=== PATIENT | female | born 1930 | race Two or more races ===

== ENCOUNTER → 2017-04-08 | Outpatient (REF) | payer MEDICARE, BC ==
[2017-04-08 18:21] LABS: MEAN CORPUSCULAR HGB CONC 32.3 g/dl (32.0-36.5); MEAN CORPUSCULAR VOLUME 92.7 fl (80.0-96.0); RED CELL DISTRIBUTION WIDTH 13.5 % (11.5-14.5); WHITE BLOOD COUNT 11.7 K/mm3 (4.0-10.0)
[2017-04-08 20:10] LABS: ALBUMIN 3.4 GM/DL (3.2-5.2); ALBUMIN/GLOBULIN RATIO 0.72 (1.00-1.93); ALKALINE PHOSPHATASE 109 U/L (45-117); ALT/SGPT 21 U/L (12-78); ANION GAP 7 MEQ/L (8-16); AST/SGOT 15 U/L (15-37); BILIRUBIN,TOTAL 0.3 MG/DL (0.2-1.0); BLOOD UREA NITROGEN 15 MG/DL (7-18); CALCIUM LEVEL 8.2 MG/DL (8.8-10.2); CARBON DIOXIDE LEVEL 31 MEQ/L (21-32); CHLORIDE LEVEL 103 MEQ/L (98-107); CHOLESTEROL LEVEL 147 MG/DL (<200); GLOMERULAR FILTRATION RATE > 60.0 (>32); GLUCOSE, FASTING 89 MG/DL (83-110); POTASSIUM SERUM 4.9 MEQ/L (3.5-5.1); SODIUM LEVEL 141 MEQ/L (136-145); TOTAL PROTEIN 8.1 GM/DL (6.4-8.2); TRIGLYCERIDES LEVEL 117 MG/DL (<150)
== END ==
LOC: M SFHCLERA 14:53
PROVIDERS: ATTEND Family Medicine
DX: J98.4 Other disorders of lung (principal); I10 Essential (primary) hypertension; Z79.899 Other long term (current) drug therapy

== ENCOUNTER → 2017-04-08 | Outpatient (CLI) | payer MEDICARE, BC ==
--- NOTE | 2017-04-08 15:32 | REP ---
Chest two views HISTORY: Lung disease Comparison: None Linear densities are present in the left lower lobe consistent with atelectasis or scar. The right lung is clear. The heart is upper limits of normal in size. The pulmonary vasculature is normal in appearance. Degenerative change is present in the thoracic spine. IMPRESSION: Left lower lobe atelectasis or scar. Signed by Johny Michele MD 04/08/2017 03:23 P
== END ==
LOC: M LRY 14:55
PROVIDERS: ATTEND Family Medicine
DX: J98.4 Other disorders of lung (principal); R91.8 Other nonspecific abnormal finding of lung field; Z79.82 Long term (current) use of aspirin; Z79.899 Other long term (current) drug therapy
CPT/HCPCS: 71020; 80053; 80061; 83036; 85027; G0463

== ENCOUNTER → 2017-07-13 | Outpatient (CLI) | payer MEDICARE, BC ==
--- NOTE | 2017-07-13 16:18 | REP ---
Chest x-ray: Two views. History: Cough. Comparison chest x-ray: April 08, 2017. 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 There are degenerative changes in both shoulders. Moderate cardiomegaly is observed. There is linear density in the left base consistent with plate-like atelectasis or perhaps linear scarring. There is a large hiatal hernia behind the heart. There are degenerative changes in the thoracic spine and aorta. Pulmonary vasculature is not increased. Pleural angles are sharp. Impression: Large hiatal hernia. Mild cardiomegaly. Linear density left base consistent with plate-like atelectasis or fibrosis. 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 Signed by Gm Krueger MD 07/13/2017 05:08 P
== END ==
LOC: M SMT 15:03
PROVIDERS: ATTEND Internal Medicine Pulmonary Disease
DX: R05 Cough (principal)

== ENCOUNTER → 2017-10-26 | Outpatient (REF) | payer MEDICARE, BC ==
[2017-10-26 17:22] LABS: ALBUMIN 3.4 GM/DL (3.2-5.2); ALBUMIN/GLOBULIN RATIO 0.83 (1.00-1.93); ALKALINE PHOSPHATASE 81 U/L (45-117); ALT/SGPT 17 U/L (12-78); ANION GAP 4 MEQ/L (8-16); AST/SGOT 15 U/L (7-37); BILIRUBIN,TOTAL 0.4 MG/DL (0.2-1.0); BLOOD UREA NITROGEN 18 MG/DL (7-18); CALCIUM LEVEL 8.9 MG/DL (8.8-10.2); CARBON DIOXIDE LEVEL 30 MEQ/L (21-32); CHLORIDE LEVEL 107 MEQ/L (98-107); GLOMERULAR FILTRATION RATE > 60.0 (>32); GLUCOSE, FASTING 85 MG/DL (70-100); POTASSIUM SERUM 4.9 MEQ/L (3.5-5.1); SODIUM LEVEL 141 MEQ/L (136-145); TOTAL PROTEIN 7.5 GM/DL (6.4-8.2)
== END ==
LOC: M SFHCLERA 14:37
DX: C52 Malignant neoplasm of vagina (principal)
CPT/HCPCS: 80053

== ENCOUNTER → 2017-11-16 | Outpatient (REF) | payer MEDICARE, BC | LOC: M SFHCLERA 08:53 | DX: L30.8 Other specified dermatitis (principal) | CPT/HCPCS: 87070; 87186 ==

== ENCOUNTER → 2018-05-24 | Outpatient (REF) | payer MEDICARE, BC ==
[2018-05-24 20:20] LABS: ANION GAP 3 MEQ/L (8-16); BLOOD UREA NITROGEN 11 MG/DL (7-18); CALCIUM LEVEL 8.3 MG/DL (8.8-10.2); CARBON DIOXIDE LEVEL 37 MEQ/L (21-32); CHLORIDE LEVEL 101 MEQ/L (98-107); CREATININE FOR GFR 0.81 MG/DL (0.55-1.30); GLOMERULAR FILTRATION RATE > 60.0 (>32); GLUCOSE, FASTING 118 MG/DL (70-100); POTASSIUM SERUM 4.6 MEQ/L (3.5-5.1); SODIUM LEVEL 141 MEQ/L (136-145)
[2018-05-24 20:30] LABS: NT-PRO BNP 2766 PG/ML (<450)
== END ==
LOC: M SFHCLERA 15:27
DX: R60.0 Localized edema (principal); I10 Essential (primary) hypertension; F03.90 Unspecified dementia, unspecified severity, without behavioral disturbance, psychotic disturbance, mood disturbance, and anxiety; C52 Malignant neoplasm of vagina; Z23 Encounter for immunization
CPT/HCPCS: 84443

== ENCOUNTER 2018-05-26 14:20 | Emergency (ER) | payer MEDICARE, BC ==
[2018-05-26 15:37] LABS: BASO # 0.1 10^3/uL (0.0-0.2); BASO % 0.8 % (0.0-1.0); EOS # 0.7 10^3/uL (0.0-0.50); EOS % 6.3 % (0.0-3.0); HEMATOCRIT 50.9 % (36.0-47.0); HEMOGLOBIN 15.8 g/dl (12.0-15.5); IMMATURE GRANULOCYTE % 0.7 % (0-3.0); LYMPH # 3.6 10^3/uL (1.5-4.5); LYMPH % 30.2 % (24.0-44.0); MEAN CORPUSCULAR VOLUME 93.6 fl (80.0-96.0); MONO % 8.8 % (0.0-5.0); NEUTROPHILS # 6.3 10^3/uL (1.8-7.7); NEUTROPHILS % 53.2 % (36.0-66.0); PLATELET COUNT, AUTOMATED 247 10^3/uL (150-450); RED BLOOD COUNT 5.44 10^6/uL (4.00-5.40); RED CELL DISTRIBUTION WIDTH 15.9 % (11.5-14.5); WHITE BLOOD COUNT 11.8 10^3/uL (4.0-10.0)
[2018-05-26 16:10] LABS: ANION GAP 3 MEQ/L (8-16); BLOOD UREA NITROGEN 14 MG/DL (7-18); CARBON DIOXIDE LEVEL 36 MEQ/L (21-32); CHLORIDE LEVEL 102 MEQ/L (98-107); CPK CREATINE PHOSPHOKINASE 31 U/L (26-192); CREATININE FOR GFR 0.78 MG/DL (0.55-1.30); GLOMERULAR FILTRATION RATE > 60.0 (>32); GLUCOSE, FASTING 95 MG/DL (70-100); MB/CK RELATIVE INDEX 3.87 (< OR =4); POTASSIUM SERUM 4.3 MEQ/L (3.5-5.1); SODIUM LEVEL 141 MEQ/L (136-145); TROPONIN I < 0.02 NG/ML (< 0.10)
[2018-05-26] MEDS: IPRATROPIUM 0.5MG/ALBUTEROL 2.5MG INH SOL UD 3ML (DUONEB)(J7620) NEB (16:56)
== END 2018-05-26 18:31 | disposition home or self-care (01) ==
LOC: M ED 14:20
DX: J44.9 Chronic obstructive pulmonary disease, unspecified (principal); I44.4 Left anterior fascicular block; I51.7 Cardiomegaly; K44.9 Diaphragmatic hernia without obstruction or gangrene; I51.9 Heart disease, unspecified; I10 Essential (primary) hypertension; Z85.41 Personal history of malignant neoplasm of cervix uteri; Z79.82 Long term (current) use of aspirin; Z79.899 Other long term (current) drug therapy; Z88.2 Allergy status to sulfonamides
CPT/HCPCS: 71045

== ENCOUNTER 2018-05-31 15:43 | Inpatient (IN) | payer MEDICARE, BC ==
[2018-05-31] MEDS ORDERED: ALBUTEROL SULFATE 2.5 MG/0.5 ML INH NEB SOLN INH (16:45)
[2018-05-31] MEDS ORDERED: IPRATROPIUM 0.5MG/ALBUTEROL 2.5MG INH SOL UD 3ML (DUONEB)(J7620) NEB (16:45)
[2018-05-31 17:11] LABS: ABG BASE EXCESS 6.6 (-2.0-2.0); ABG HCO3 35.5 MEQ/L (22.0-26.0); ABG O2 SATURATION 95.4 % (95.0-99.0); ABG STANDARD HCO3 30.4 MEQ/L (22.0-26.0); ABG TOTAL CO2 37.6 MEQ/L (23.0-31.0); ABG pH (ARTERIAL) 7.334 UNITS (7.350-7.450)
[2018-05-31 17:14] LABS: ABG PARTIAL PRESSURE CO2 55.1 mmHg (35.0-45.0); ABG PARTIAL PRESSURE O2 85.7 mmHg (75.0-100.0)
[2018-05-31 17:26] LABS: BASO # 0.1 10^3/uL (0.0-0.2); BASO % 0.6 % (0.0-1.0); EOS # 0.3 10^3/uL (0.0-0.50); EOS % 3.1 % (0.0-3.0); HEMATOCRIT 52.5 % (36.0-47.0); HEMOGLOBIN 16.2 g/dl (12.0-15.5); IMMATURE GRANULOCYTE % 0.7 % (0-3.0); LYMPH # 2.3 10^3/uL (1.5-4.5); LYMPH % 20.9 % (24.0-44.0); MEAN CORPUSCULAR HEMOGLOBIN 29.2 pg (27.0-33.0); MEAN CORPUSCULAR HGB CONC 30.9 g/dl (32.0-36.5); MEAN CORPUSCULAR VOLUME 94.8 fl (80.0-96.0); MONO # 0.4 10^3/uL (0.0-0.8); MONO % 3.7 % (0.0-5.0); NEUTROPHILS # 7.7 10^3/uL (1.8-7.7); PLATELET COUNT, AUTOMATED 213 10^3/uL (150-450); RED BLOOD COUNT 5.54 10^6/uL (4.00-5.40); RED CELL DISTRIBUTION WIDTH 15.7 % (11.5-14.5); WHITE BLOOD COUNT 10.9 10^3/uL (4.0-10.0)
[2018-05-31 17:45] LABS: INR 1.01; PROTHROMBIN TIME 13.4 SECONDS (12.1-14.4)
[2018-05-31 17:46] LABS: LACTIC ACID SEPSIS PROTOCOL 0.8 MMOL/L (0.4-2.0)
[2018-05-31 17:48] LABS: D-DIMER QUANT 883.4 ng/ml (<500)
[2018-05-31 17:54] LABS: ALBUMIN 2.9 GM/DL (3.2-5.2); ALKALINE PHOSPHATASE 97 U/L (45-117); ALT/SGPT 15 U/L (12-78); ANION GAP 7 MEQ/L (8-16); AST/SGOT 13 U/L (7-37); BILIRUBIN,DIRECT 0.3 MG/DL (0.0-0.2); BLOOD UREA NITROGEN 12 MG/DL (7-18); CALCIUM LEVEL 8.3 MG/DL (8.8-10.2); CARBON DIOXIDE LEVEL 35 MEQ/L (21-32); CHLORIDE LEVEL 99 MEQ/L (98-107); CPK CREATINE PHOSPHOKINASE 26 U/L (26-192); CREATININE FOR GFR 0.84 MG/DL (0.55-1.30); GLOMERULAR FILTRATION RATE > 60.0 (>32); GLUCOSE, FASTING 109 MG/DL (70-100); MB/CK RELATIVE INDEX 4.62 (< OR =4); NT-PRO BNP 3065 PG/ML (<450); POTASSIUM SERUM 4.6 MEQ/L (3.5-5.1); SODIUM LEVEL 141 MEQ/L (136-145); THYROXINE (T4) 8.1 UG/DL (4.5-12.0); TOTAL PROTEIN 7.7 GM/DL (6.4-8.2); TROPONIN I < 0.02 NG/ML (< 0.10)
[2018-05-31] MEDS ORDERED: ISOVUE-370 76% 100ML VIAL (Q9967) As Ordered (18:04)
[2018-05-31 18:07] LABS: INFLUENZA A AMPLIFICATION NEGATIVE (NEGATIVE); INFLUENZA B AMPLIFICATION NEGATIVE (NEGATIVE)
[2018-05-31] MEDS: FUROSEMIDE 40 MG/4 ML VIAL (J1940) IV (18:36)
[2018-05-31] MEDS: methylPREDNISolone INJ 125 MG/2 ML VIAL (J2930) IV (18:36)
[2018-05-31] MEDS ORDERED: DEXTRAN/HYPROMELLOSE OPHTH SOLN 15 ML(GENTEAL TEARS) OU (21:00)
[2018-05-31] MEDS ORDERED: ALBUTEROL 90 MCG/ACT 8GM HFA INHALER INH (21:00)
[2018-05-31] MEDS ORDERED: IBUPROFEN 400 MG TAB PO (21:00)
[2018-06-01] MEDS: HEPARIN SOD (PORCINE) 5000 UNITS/ML VIAL SC ×3 (05:29→21:10)
[2018-06-01 06:06] LABS: HEMATOCRIT 47.8 % (36.0-47.0); HEMOGLOBIN 15.1 g/dl (12.0-15.5); MEAN CORPUSCULAR HGB CONC 31.6 g/dl (32.0-36.5); MEAN CORPUSCULAR VOLUME 91.9 fl (80.0-96.0); PLATELET COUNT, AUTOMATED 224 10^3/uL (150-450); RED CELL DISTRIBUTION WIDTH 15.2 % (11.5-14.5); WHITE BLOOD COUNT 9.5 10^3/uL (4.0-10.0)
[2018-06-01 06:34] LABS: ANION GAP 6 MEQ/L (8-16); BLOOD UREA NITROGEN 13 MG/DL (7-18); CALCIUM LEVEL 8.9 MG/DL (8.8-10.2); CARBON DIOXIDE LEVEL 36 MEQ/L (21-32); CHLORIDE LEVEL 96 MEQ/L (98-107); CREATININE FOR GFR 0.74 MG/DL (0.55-1.30); GLOMERULAR FILTRATION RATE > 60.0 (>32); GLUCOSE, FASTING 153 MG/DL (70-100); POTASSIUM SERUM 4.4 MEQ/L (3.5-5.1); SODIUM LEVEL 138 MEQ/L (136-145)
[2018-06-01] MEDS: OCUVITE 1 TAB PO (10:03)
[2018-06-01] MEDS: MEGESTROL 40 MG TAB PO (10:03)
[2018-06-01] MEDS: MULTIVITAMINS/MINERALS THERAP 1 TAB PO (10:03)
[2018-06-01] MEDS: ASPIRIN 81 MG ENTERIC TAB PO (10:03)
[2018-06-01] MEDS: FERROUS SULFATE 325MG TAB PO (10:03)
[2018-06-01] MEDS: LETROZOLE 2.5 MG TAB PO (10:03)
[2018-06-01] MEDS: METOPROLOL TART 50 MG TAB PO (10:06)
[2018-06-01] MEDS: LOSARTAN 25 MG TAB PO (10:06)
[2018-06-01] MEDS: TRIAMCINOLONE ACET 0.1% OINTMENT 80 GM TOP (10:07)
[2018-06-01] MEDS: FLUTICASONE 0.05% CREAM 30GM (CUTIVATE) TOP (10:07)
[2018-06-01 11:15] LABS: NT-PRO BNP 3388 PG/ML (<450); TROPONIN I < 0.02 NG/ML (< 0.10)
[2018-06-01] MEDS: FUROSEMIDE 40 MG/4 ML VIAL (J1940) IV ×2 (13:34→17:47)
[2018-06-02] MEDS: HEPARIN SOD (PORCINE) 5000 UNITS/ML VIAL SC ×3 (05:22→21:22)
[2018-06-02 06:21] LABS: HEMATOCRIT 48.8 % (36.0-47.0); HEMOGLOBIN 15.1 g/dl (12.0-15.5); MEAN CORPUSCULAR HEMOGLOBIN 29.3 pg (27.0-33.0); MEAN CORPUSCULAR HGB CONC 30.9 g/dl (32.0-36.5); MEAN CORPUSCULAR VOLUME 94.6 fl (80.0-96.0); PLATELET COUNT, AUTOMATED 229 10^3/uL (150-450); RED BLOOD COUNT 5.16 10^6/uL (4.00-5.40); RED CELL DISTRIBUTION WIDTH 15.4 % (11.5-14.5); WHITE BLOOD COUNT 16.1 10^3/uL (4.0-10.0)
[2018-06-02 06:42] LABS: ANION GAP 4 MEQ/L (8-16); BLOOD UREA NITROGEN 21 MG/DL (7-18); CALCIUM LEVEL 8.4 MG/DL (8.8-10.2); CARBON DIOXIDE LEVEL 41 MEQ/L (21-32); CHLORIDE LEVEL 95 MEQ/L (98-107); CREATININE FOR GFR 0.86 MG/DL (0.55-1.30); GLOMERULAR FILTRATION RATE > 60.0 (>32); GLUCOSE, FASTING 96 MG/DL (70-100); POTASSIUM SERUM 4.1 MEQ/L (3.5-5.1); SODIUM LEVEL 140 MEQ/L (136-145)
[2018-06-02 07:54] LABS: NT-PRO BNP 1327 PG/ML (<450)
[2018-06-02] MEDS: FLUTICASONE 0.05% CREAM 30GM (CUTIVATE) TOP (08:48)
[2018-06-02] MEDS: FUROSEMIDE 40 MG/4 ML VIAL (J1940) IV ×2 (08:48→17:40)
[2018-06-02] MEDS: TRIAMCINOLONE ACET 0.1% OINTMENT 80 GM TOP (08:48)
[2018-06-02] MEDS: OCUVITE 1 TAB PO (08:49)
[2018-06-02] MEDS: ASPIRIN 81 MG ENTERIC TAB PO (08:49)
[2018-06-02] MEDS: MEGESTROL 40 MG TAB PO (08:49)
[2018-06-02] MEDS: MULTIVITAMINS/MINERALS THERAP 1 TAB PO (08:49)
[2018-06-02] MEDS: FERROUS SULFATE 325MG TAB PO (08:49)
[2018-06-02] MEDS: METOPROLOL TART 50 MG TAB PO (08:49)
[2018-06-02] MEDS: LOSARTAN 25 MG TAB PO (08:49)
[2018-06-03] MEDS: HEPARIN SOD (PORCINE) 5000 UNITS/ML VIAL SC ×3 (05:56→21:03)
[2018-06-03 06:11] LABS: HEMATOCRIT 48.2 % (36.0-47.0); MEAN CORPUSCULAR HEMOGLOBIN 29.1 pg (27.0-33.0); MEAN CORPUSCULAR HGB CONC 31.1 g/dl (32.0-36.5); MEAN CORPUSCULAR VOLUME 93.4 fl (80.0-96.0); PLATELET COUNT, AUTOMATED 199 10^3/uL (150-450); RED BLOOD COUNT 5.16 10^6/uL (4.00-5.40); RED CELL DISTRIBUTION WIDTH 15.4 % (11.5-14.5)
[2018-06-03 06:42] LABS: ANION GAP 3 MEQ/L (8-16); BLOOD UREA NITROGEN 24 MG/DL (7-18); CALCIUM LEVEL 8.6 MG/DL (8.8-10.2); CARBON DIOXIDE LEVEL 42 MEQ/L (21-32); CHLORIDE LEVEL 94 MEQ/L (98-107); CREATININE FOR GFR 0.72 MG/DL (0.55-1.30); GLOMERULAR FILTRATION RATE > 60.0 (>32); GLUCOSE, FASTING 96 MG/DL (70-100); POTASSIUM SERUM 3.9 MEQ/L (3.5-5.1); SODIUM LEVEL 139 MEQ/L (136-145)
[2018-06-03 08:16] LABS: NT-PRO BNP 539 PG/ML (<450)
[2018-06-03] MEDS: FLUTICASONE 0.05% CREAM 30GM (CUTIVATE) TOP (09:00)
[2018-06-03] MEDS: TRIAMCINOLONE ACET 0.1% OINTMENT 80 GM TOP (09:00)
[2018-06-03] MEDS: ASPIRIN 81 MG ENTERIC TAB PO (09:17)
[2018-06-03] MEDS: OCUVITE 1 TAB PO (09:17)
[2018-06-03] MEDS: MEGESTROL 40 MG TAB PO (09:18)
[2018-06-03] MEDS: FERROUS SULFATE 325MG TAB PO (09:18)
[2018-06-03] MEDS: METOPROLOL TART 50 MG TAB PO (09:18)
[2018-06-03] MEDS: LOSARTAN 25 MG TAB PO (09:19)
[2018-06-03] MEDS: MULTIVITAMINS/MINERALS THERAP 1 TAB PO (09:19)
[2018-06-03] MEDS: FUROSEMIDE 40 MG/4 ML VIAL (J1940) IV ×2 (09:20→17:03)
[2018-06-03] MEDS: metOLazone 2.5 MG TAB PO (17:03)
[2018-06-04] MEDS: HEPARIN SOD (PORCINE) 5000 UNITS/ML VIAL SC ×3 (05:31→22:00)
[2018-06-04 06:29] LABS: HEMATOCRIT 48.5 % (36.0-47.0); HEMOGLOBIN 15.1 g/dl (12.0-15.5); MEAN CORPUSCULAR HEMOGLOBIN 28.7 pg (27.0-33.0); MEAN CORPUSCULAR HGB CONC 31.1 g/dl (32.0-36.5); MEAN CORPUSCULAR VOLUME 92.2 fl (80.0-96.0); PLATELET COUNT, AUTOMATED 199 10^3/uL (150-450); RED BLOOD COUNT 5.26 10^6/uL (4.00-5.40); RED CELL DISTRIBUTION WIDTH 15.1 % (11.5-14.5); WHITE BLOOD COUNT 12.1 10^3/uL (4.0-10.0)
[2018-06-04 07:04] LABS: ANION GAP 2 MEQ/L (8-16); BLOOD UREA NITROGEN 22 MG/DL (7-18); CALCIUM LEVEL 8.7 MG/DL (8.8-10.2); CARBON DIOXIDE LEVEL 43 MEQ/L (21-32); CHLORIDE LEVEL 92 MEQ/L (98-107); CREATININE FOR GFR 0.76 MG/DL (0.55-1.30); GLOMERULAR FILTRATION RATE > 60.0 (>32); GLUCOSE, FASTING 94 MG/DL (70-100); POTASSIUM SERUM 3.9 MEQ/L (3.5-5.1); SODIUM LEVEL 137 MEQ/L (136-145)
[2018-06-04] MEDS: OCUVITE 1 TAB PO (10:35)
[2018-06-04] MEDS: FUROSEMIDE 40 MG/4 ML VIAL (J1940) IV ×2 (10:35→16:31)
[2018-06-04] MEDS: FERROUS SULFATE 325MG TAB PO (10:35)
[2018-06-04] MEDS: ASPIRIN 81 MG ENTERIC TAB PO (10:36)
[2018-06-04] MEDS: MEGESTROL 40 MG TAB PO (10:36)
[2018-06-04] MEDS: MULTIVITAMINS/MINERALS THERAP 1 TAB PO (10:38)
[2018-06-04] MEDS: LOSARTAN 25 MG TAB PO (10:40)
[2018-06-04] MEDS: METOPROLOL TART 50 MG TAB PO (10:56)
[2018-06-04] MEDS: TRIAMCINOLONE ACET 0.1% OINTMENT 80 GM TOP (10:57)
[2018-06-04] MEDS: FLUTICASONE 0.05% CREAM 30GM (CUTIVATE) TOP (10:57)
[2018-06-05] MEDS: HEPARIN SOD (PORCINE) 5000 UNITS/ML VIAL SC ×3 (05:30→21:05)
[2018-06-05 07:16] LABS: HEMATOCRIT 50.3 % (36.0-47.0); HEMOGLOBIN 16.3 g/dl (12.0-15.5); MEAN CORPUSCULAR HEMOGLOBIN 29.2 pg (27.0-33.0); MEAN CORPUSCULAR HGB CONC 32.4 g/dl (32.0-36.5); PLATELET COUNT, AUTOMATED 208 10^3/uL (150-450); RED BLOOD COUNT 5.59 10^6/uL (4.00-5.40); RED CELL DISTRIBUTION WIDTH 15.8 % (11.5-14.5); WHITE BLOOD COUNT 14.1 10^3/uL (4.0-10.0)
[2018-06-05 07:23] LABS: SUSPECT SAMPLE POS FLAG
[2018-06-05 07:39] LABS: ANION GAP 5 MEQ/L (8-16); BLOOD UREA NITROGEN 25 MG/DL (7-18); CALCIUM LEVEL 9.5 MG/DL (8.8-10.2); CARBON DIOXIDE LEVEL 42 MEQ/L (21-32); CHLORIDE LEVEL 88 MEQ/L (98-107); CREATININE FOR GFR 0.83 MG/DL (0.55-1.30); GLOMERULAR FILTRATION RATE > 60.0 (>32); GLUCOSE, FASTING 112 MG/DL (70-100); POTASSIUM SERUM 3.7 MEQ/L (3.5-5.1); SODIUM LEVEL 135 MEQ/L (136-145)
[2018-06-05] MEDS: FUROSEMIDE 40 MG/4 ML VIAL (J1940) IV (10:10)
[2018-06-05] MEDS: OCUVITE 1 TAB PO (10:11)
[2018-06-05] MEDS: MULTIVITAMINS/MINERALS THERAP 1 TAB PO (10:11)
[2018-06-05] MEDS: ASPIRIN 81 MG ENTERIC TAB PO (10:12)
[2018-06-05] MEDS: METOPROLOL TART 50 MG TAB PO (10:12)
[2018-06-05] MEDS: LOSARTAN 25 MG TAB PO (10:13)
[2018-06-05] MEDS: FERROUS SULFATE 325MG TAB PO (10:13)
[2018-06-05] MEDS: TRIAMCINOLONE ACET 0.1% OINTMENT 80 GM TOP (10:15)
[2018-06-05] MEDS: FLUTICASONE 0.05% CREAM 30GM (CUTIVATE) TOP (10:15)
[2018-06-05] MEDS: MEGESTROL 40 MG TAB PO (10:16)
[2018-06-05 11:33] LABS: ABG BASE EXCESS 12.5 (-2.0-2.0); ABG HCO3 36.4 MEQ/L (22.0-26.0); ABG O2 SATURATION 98.8 % (95.0-99.0); ABG PARTIAL PRESSURE CO2 42.6 mmHg (35.0-45.0); ABG PARTIAL PRESSURE O2 110.3 mmHg (75.0-100.0); ABG STANDARD HCO3 36.4 MEQ/L (22.0-26.0); ABG TOTAL CO2 37.7 MEQ/L (23.0-31.0); ABG pH (ARTERIAL) 7.549 UNITS (7.350-7.450)
[2018-06-05] MEDS: SODIUM CHLORIDE 0.9% 1000ML IV (12:15)
[2018-06-05] MEDS: IPRATROPIUM 0.5MG/ALBUTEROL 2.5MG INH SOL UD 3ML (DUONEB)(J7620) NEB ×3 (12:31→23:23)
[2018-06-06] MEDS: HEPARIN SOD (PORCINE) 5000 UNITS/ML VIAL SC ×3 (05:36→20:56)
[2018-06-06 07:28] LABS: HEMATOCRIT 49.7 % (36.0-47.0); HEMOGLOBIN 15.8 g/dl (12.0-15.5); MEAN CORPUSCULAR HEMOGLOBIN 29.1 pg (27.0-33.0); MEAN CORPUSCULAR HGB CONC 31.8 g/dl (32.0-36.5); MEAN CORPUSCULAR VOLUME 91.5 fl (80.0-96.0); PLATELET COUNT, AUTOMATED 173 10^3/uL (150-450); RED BLOOD COUNT 5.43 10^6/uL (4.00-5.40); RED CELL DISTRIBUTION WIDTH 15.1 % (11.5-14.5); WHITE BLOOD COUNT 12.8 10^3/uL (4.0-10.0)
[2018-06-06] MEDS: ASPIRIN 81 MG ENTERIC TAB PO (09:27)
[2018-06-06] MEDS: OCUVITE 1 TAB PO (09:27)
[2018-06-06] MEDS: FERROUS SULFATE 325MG TAB PO (09:31)
[2018-06-06] MEDS: LOSARTAN 25 MG TAB PO (09:31)
[2018-06-06] MEDS: METOPROLOL TART 50 MG TAB PO (09:31)
[2018-06-06] MEDS: MEGESTROL 40 MG TAB PO (09:31)
[2018-06-06] MEDS: MULTIVITAMINS/MINERALS THERAP 1 TAB PO (09:31)
[2018-06-06] MEDS: TRIAMCINOLONE ACET 0.1% OINTMENT 80 GM TOP (09:33)
[2018-06-06] MEDS: FLUTICASONE 0.05% CREAM 30GM (CUTIVATE) TOP (09:33)
[2018-06-06] MEDS: IPRATROPIUM 0.5MG/ALBUTEROL 2.5MG INH SOL UD 3ML (DUONEB)(J7620) NEB ×2 (09:47→15:43)
[2018-06-06 13:33] LABS: ANION GAP 7 MEQ/L (8-16); BLOOD UREA NITROGEN 33 MG/DL (7-18); CALCIUM LEVEL 8.8 MG/DL (8.8-10.2); CARBON DIOXIDE LEVEL 40 MEQ/L (21-32); CHLORIDE LEVEL 89 MEQ/L (98-107); CREATININE FOR GFR 1.02 MG/DL (0.55-1.30); GLOMERULAR FILTRATION RATE 54.8 (>32); GLUCOSE, FASTING 140 MG/DL (70-100); POTASSIUM SERUM 3.5 MEQ/L (3.5-5.1); SODIUM LEVEL 136 MEQ/L (136-145)
[2018-06-06] MEDS: FUROSEMIDE 40 MG TAB PO (14:12)
[2018-06-06] MEDS: ADVAIR HFA 230/21MCG INHALER INH ×2 (14:26→21:11)
[2018-06-06] MEDS: TIOTROPIUM INHALER/CAPSULE (SPIRIVA) INH (14:26)
[2018-06-07] MEDS: IPRATROPIUM 0.5MG/ALBUTEROL 2.5MG INH SOL UD 3ML (DUONEB)(J7620) NEB ×2 (00:06→08:00)
[2018-06-07] MEDS: HEPARIN SOD (PORCINE) 5000 UNITS/ML VIAL SC (05:41)
[2018-06-07 07:13] LABS: HEMATOCRIT 47.5 % (36.0-47.0); HEMOGLOBIN 15.1 g/dl (12.0-15.5); MEAN CORPUSCULAR HEMOGLOBIN 29.2 pg (27.0-33.0); MEAN CORPUSCULAR HGB CONC 31.8 g/dl (32.0-36.5); MEAN CORPUSCULAR VOLUME 91.7 fl (80.0-96.0); PLATELET COUNT, AUTOMATED 184 10^3/uL (150-450); RED BLOOD COUNT 5.18 10^6/uL (4.00-5.40); RED CELL DISTRIBUTION WIDTH 15.1 % (11.5-14.5); WHITE BLOOD COUNT 11.2 10^3/uL (4.0-10.0)
[2018-06-07 07:22] LABS: ANION GAP 6 MEQ/L (8-16); BLOOD UREA NITROGEN 34 MG/DL (7-18); CALCIUM LEVEL 8.7 MG/DL (8.8-10.2); CARBON DIOXIDE LEVEL 36 MEQ/L (21-32); CHLORIDE LEVEL 90 MEQ/L (98-107); CREATININE FOR GFR 0.98 MG/DL (0.55-1.30); GLOMERULAR FILTRATION RATE 57.4 (>32); GLUCOSE, FASTING 128 MG/DL (70-100); POTASSIUM SERUM 3.7 MEQ/L (3.5-5.1); SODIUM LEVEL 132 MEQ/L (136-145)
[2018-06-07] MEDS: ADVAIR HFA 230/21MCG INHALER INH (08:18)
[2018-06-07] MEDS: FLUTICASONE 0.05% CREAM 30GM (CUTIVATE) TOP (09:00)
[2018-06-07] MEDS: METOPROLOL TART 50 MG TAB PO (09:00)
[2018-06-07] MEDS: FUROSEMIDE 40 MG TAB PO (09:24)
[2018-06-07] MEDS: ASPIRIN 81 MG ENTERIC TAB PO (09:25)
[2018-06-07] MEDS: MEGESTROL 40 MG TAB PO (09:25)
[2018-06-07] MEDS: LOSARTAN 25 MG TAB PO (09:25)
[2018-06-07] MEDS: MULTIVITAMINS/MINERALS THERAP 1 TAB PO (09:25)
[2018-06-07] MEDS: FERROUS SULFATE 325MG TAB PO (09:25)
[2018-06-07] MEDS: OCUVITE 1 TAB PO (09:25)
[2018-06-07] MEDS: TRIAMCINOLONE ACET 0.1% OINTMENT 80 GM TOP (09:26)
== END 2018-06-07 15:50 | disposition home health service (06) | DRG 293 ==
LOC: M ED 15:43 → M ED INP 20:33 → M MSPAV 22:09
DX: I11.0 Hypertensive heart disease with heart failure (principal); F03.90 Unspecified dementia, unspecified severity, without behavioral disturbance, psychotic disturbance, mood disturbance, and anxiety; J44.9 Chronic obstructive pulmonary disease, unspecified; C52 Malignant neoplasm of vagina; I50.33 Acute on chronic diastolic (congestive) heart failure; R06.03 Acute respiratory distress; E66.01 Morbid (severe) obesity due to excess calories; H35.30 Unspecified macular degeneration; D50.9 Iron deficiency anemia, unspecified; C54.1 Malignant neoplasm of endometrium; Z77.22 Contact with and (suspected) exposure to environmental tobacco smoke (acute) (chronic); Z79.82 Long term (current) use of aspirin; Z79.899 Other long term (current) drug therapy; Z88.2 Allergy status to sulfonamides; Z68.39 Body mass index [BMI] 39.0-39.9, adult

== ENCOUNTER → 2018-06-10 | Outpatient (REF) | payer MEDICARE, BC ==
[2018-06-10 17:07] LABS: HEMATOCRIT 50.5 % (36.0-47.0); HEMOGLOBIN 16.1 g/dl (12.0-15.5); MEAN CORPUSCULAR HEMOGLOBIN 29.1 pg (27.0-33.0); MEAN CORPUSCULAR HGB CONC 31.9 g/dl (32.0-36.5); MEAN CORPUSCULAR VOLUME 91.3 fl (80.0-96.0); PLATELET COUNT, AUTOMATED 303 10^3/uL (150-450); RED BLOOD COUNT 5.53 10^6/uL (4.00-5.40); RED CELL DISTRIBUTION WIDTH 14.6 % (11.5-14.5); WHITE BLOOD COUNT 12.8 10^3/uL (4.0-10.0)
[2018-06-10 17:17] LABS: ANION GAP 9 MEQ/L (8-16); BLOOD UREA NITROGEN 25 MG/DL (7-18); CALCIUM LEVEL 9.4 MG/DL (8.8-10.2); CARBON DIOXIDE LEVEL 32 MEQ/L (21-32); CHLORIDE LEVEL 95 MEQ/L (98-107); CREATININE FOR GFR 0.88 MG/DL (0.55-1.30); GLOMERULAR FILTRATION RATE > 60.0 (>32); GLUCOSE, FASTING 95 MG/DL (70-100); POTASSIUM SERUM 4.6 MEQ/L (3.5-5.1); SODIUM LEVEL 136 MEQ/L (136-145)
== END ==
LOC: M SFHCLERA 12:38
DX: N93.9 Abnormal uterine and vaginal bleeding, unspecified (principal); I50.31 Acute diastolic (congestive) heart failure
CPT/HCPCS: 80048

== ENCOUNTER → 2018-06-22 | Outpatient (REF) | payer MEDICARE, BC ==
[2018-06-22 16:54] LABS: BASO # 0.1 10^3/uL (0.0-0.2); BASO % 0.7 % (0.0-1.0); EOS # 0.7 10^3/uL (0.0-0.50); EOS % 6.1 % (0.0-3.0); HEMATOCRIT 49.7 % (36.0-47.0); IMMATURE GRANULOCYTE % 0.5 % (0-3.0); LYMPH # 3.1 10^3/uL (1.5-4.5); LYMPH % 27.7 % (24.0-44.0); MEAN CORPUSCULAR HEMOGLOBIN 29.3 pg (27.0-33.0); MEAN CORPUSCULAR HGB CONC 32.2 g/dl (32.0-36.5); MONO # 0.9 10^3/uL (0.0-0.8); MONO % 7.7 % (0.0-5.0); NEUTROPHILS # 6.5 10^3/uL (1.8-7.7); NEUTROPHILS % 57.3 % (36.0-66.0); PLATELET COUNT, AUTOMATED 322 10^3/uL (150-450); RED BLOOD COUNT 5.46 10^6/uL (4.00-5.40); RED CELL DISTRIBUTION WIDTH 13.6 % (11.5-14.5); WHITE BLOOD COUNT 11.3 10^3/uL (4.0-10.0)
[2018-06-22 17:02] LABS: ALBUMIN 3.7 GM/DL (3.2-5.2); ALBUMIN/GLOBULIN RATIO 0.82 (1.00-1.93); ALKALINE PHOSPHATASE 105 U/L (45-117); ALT/SGPT 24 U/L (12-78); ANION GAP 6 MEQ/L (8-16); AST/SGOT 14 U/L (7-37); BILIRUBIN,TOTAL 0.7 MG/DL (0.2-1.0); BLOOD UREA NITROGEN 22 MG/DL (7-18); CALCIUM LEVEL 9.3 MG/DL (8.8-10.2); CARBON DIOXIDE LEVEL 32 MEQ/L (21-32); CHLORIDE LEVEL 102 MEQ/L (98-107); CREATININE FOR GFR 0.92 MG/DL (0.55-1.30); GLOMERULAR FILTRATION RATE > 60.0 (>32); GLUCOSE, FASTING 89 MG/DL (70-100); POTASSIUM SERUM 4.7 MEQ/L (3.5-5.1); SODIUM LEVEL 140 MEQ/L (136-145); TOTAL PROTEIN 8.2 GM/DL (6.4-8.2)
[2018-06-22 17:15] LABS: INR 1.12; PROTHROMBIN TIME 14.5 SECONDS (12.1-14.4)
[2018-06-22 17:16] LABS: PARTIAL THROMBOPLASTIN TIME 29.5 SECONDS (25.4-37.6)
== END ==
LOC: M SFHCLERA 13:02
DX: R23.3 Spontaneous ecchymoses (principal); I50.31 Acute diastolic (congestive) heart failure
CPT/HCPCS: 80053

== ENCOUNTER → 2018-06-28 | Outpatient (REF) | payer MEDICARE, BC ==
[2018-06-28 17:02] LABS: ANION GAP 7 MEQ/L (8-16); BLOOD UREA NITROGEN 18 MG/DL (7-18); CALCIUM LEVEL 8.8 MG/DL (8.8-10.2); CARBON DIOXIDE LEVEL 28 MEQ/L (21-32); CHLORIDE LEVEL 105 MEQ/L (98-107); CREATININE FOR GFR 0.95 MG/DL (0.55-1.30); GLOMERULAR FILTRATION RATE 59.5 (>32); GLUCOSE, FASTING 118 MG/DL (70-100); POTASSIUM SERUM 4.2 MEQ/L (3.5-5.1); SODIUM LEVEL 140 MEQ/L (136-145)
== END ==
LOC: M SFHCLERA 13:40
DX: I50.31 Acute diastolic (congestive) heart failure (principal)
CPT/HCPCS: 80048

== ENCOUNTER → 2018-08-20 | Outpatient (REF) | payer MEDICARE, BC ==
[~2018-08-20] MED LIST: ADVA230A INH; ARTI99.0 OU; ASPI1TAB15 PO; ASPI81TAEC PO; COZA1TAB PO; FERR1TAB8 PO; FLUT0.003 EXT; FURO20TA2 PO; FURO40TA2 PO; GABA-1171 PO; IBUPOTC PO; LETR2.5T2 PO; MEGE40TA PO; METO50TA7 PO; OCUVTAB4 PO; PRESSER VISION; PROAAER10 INH; TIOT18INH INH; TRIA1OI TOP; TUDO1AER2 INH; VITMTA PO
[2018-08-20 19:51] LABS: BLOOD UREA NITROGEN 16 MG/DL (7-18); CALCIUM LEVEL 8.7 MG/DL (8.8-10.2); CARBON DIOXIDE LEVEL 30 MEQ/L (21-32); CHLORIDE LEVEL 105 MEQ/L (98-107); CREATININE FOR GFR 0.72 MG/DL (0.55-1.30); GLOMERULAR FILTRATION RATE > 60.0 (>32); GLUCOSE, FASTING 101 MG/DL (70-100); POTASSIUM SERUM 4.4 MEQ/L (3.5-5.1); SODIUM LEVEL 141 MEQ/L (136-145)
== END ==
LOC: M SFHCLERA 15:42
PROVIDERS: ATTEND Family Medicine
DX: I50.31 Acute diastolic (congestive) heart failure (principal); Z23 Encounter for immunization
CPT/HCPCS: 80048; 90670; G0009

== ENCOUNTER → 2019-02-10 | Outpatient (REF) | payer MEDICARE, BC ==
[~2019-02-10] MED LIST changes: -TUDO1AER2 INH; +TUDO1AER3 INH
[2019-02-10 17:03] LABS: CALCIUM LEVEL 9.2 MG/DL (8.8-10.2); CREATININE FOR GFR 1.1 MG/DL (0.55-1.30); GLOMERULAR FILTRATION RATE 50.1 (>32); POTASSIUM SERUM 4.7 MEQ/L (3.5-5.1)
[2019-02-10 17:11] LABS: HEMATOCRIT 47.6 % (36.0-47.0); HEMOGLOBIN 15.7 g/dl (12.0-15.5)
== END ==
LOC: M SFHCLERA 11:42
PROVIDERS: ATTEND Family Medicine
DX: I10 Essential (primary) hypertension (principal); C52 Malignant neoplasm of vagina
CPT/HCPCS: 80048; 85014; 85018; G0463

== ENCOUNTER → 2019-05-17 | Outpatient (REF) | payer MEDICARE, BC ==
[~2019-05-17] MED LIST changes: -ARTI99.0 OU; +ARTIDRO2 OU
[2019-05-17 16:59] LABS: HEMATOCRIT 48.8 % (36.0-47.0); HEMOGLOBIN 15.7 g/dl (12.0-15.5)
[2019-05-17 17:32] LABS: BLOOD UREA NITROGEN 15 MG/DL (7-18); CALCIUM LEVEL 9.4 MG/DL (8.8-10.2); CARBON DIOXIDE LEVEL 30 MEQ/L (21-32); CHLORIDE LEVEL 100 MEQ/L (98-107); CREATININE FOR GFR 0.88 MG/DL (0.55-1.30); GLOMERULAR FILTRATION RATE > 60.0 (>32); GLUCOSE, FASTING 101 MG/DL (70-100); POTASSIUM SERUM 3.9 MEQ/L (3.5-5.1); SODIUM LEVEL 138 MEQ/L (136-145)
== END ==
LOC: M SFHCLERA 11:56
PROVIDERS: ATTEND Family Medicine
DX: I10 Essential (primary) hypertension (principal); C52 Malignant neoplasm of vagina
CPT/HCPCS: 80048; 85014; 85018; 90682; G0008; G0463